=== PATIENT | female | born 1975 | race Caucasian/White ===

== ENCOUNTER 2023-07-26 08:52 | Emergency (ER) | payer OTHER ==
[~2023-07-26] VITALS: Ht 160 cm; Wt 54.4 kg
[2023-07-26] MEDS ORDERED: MORPHINE SULFATE 4 MG/1 ML DISP.SYRIN ONE (09:08)
[2023-07-26] MEDS ORDERED: ONDANSETRON 4 MG/2 ML VIAL ONE (09:08)
[2023-07-26 09:12] LABS: BASOPHILS # (AUTO) 0.1 K/UL (0.0-0.2); BASOPHILS % (AUTO) 0.6 % (0.0-2.0); EOSINOPHILS % (AUTO) 0.4 % (0.0-7.0); HEMATOCRIT 41.3 % (31.2-41.9); HEMOGLOBIN 14.2 g/dL (10.9-14.3); LYMPHOCYTES # (AUTO) 1.7 K/uL (0.8-4.8); LYMPHOCYTES % (AUTO) 16.4 % (20.5-51.5); MEAN CORPUSCULAR HEMOGLOBIN 31.8 uug (24.7-32.8); MEAN CORPUSCULAR HGB CONC 34 g/dL (32.3-35.6); MONOCYTES # (AUTO) 0.5 K/uL (0.1-1.30); MONOCYTES % (AUTO) 4.5 % (0.0-11.0); NEUTROPHILS # (AUTO) 8.2 K/uL (1.8-8.9); NEUTROPHILS % (AUTO) 78.1 % (38.5-71.5); PLATELET COUNT (AUTO) 335 K/uL (179-408); RED BLOOD CELL COUNT(AUTO) 4.45 MIL/uL (3.63-4.92); RED CELL DISTRIBUTION WIDTH 13.3 % (12.3-17.7); WHITE BLOOD COUNT (AUTO) 10.4 K/uL (3.8-11.8)
[2023-07-26] MEDS: IV NORMAL SALINE 1000 ML BAG IV ONE (09:13)
[2023-07-26] MEDS: MORPHINE SULFATE 2 MG/1 ML DISP.SYRIN IV ONE (09:13)
[2023-07-26] MEDS: ONDANSETRON 4 MG/2 ML VIAL IV ONE (09:14)
[2023-07-26 09:18] LABS: DIFFERENTIAL COMMENT 1
[2023-07-26 09:21] LABS: CALCIUM 9.4 mg/dL (8.5-10.1); CARBON DIOXIDE 27 mmol/L (21-32); CHLORIDE 100 mmol/L (98-107); CREATININE 0.7 mg/dL (0.6-1.3); GLUCOSE 128 mg/dL (74-106); POTASSIUM 3.7 mmol/L (3.5-5.1); SODIUM SERUM 134 mmol/L (136-145); UREA NITROGEN, BLOOD 14 mg/dL (7-18)
[2023-07-26 09:27] LABS: ALANINE AMINOTRANSFERASE 27 U/L (14-59); ALBUMIN 3.9 g/dL (3.4-5.0); ALKALINE PHOSPHATASE 90 U/L (50-136); ASPARTATE AMINOTRANSFERASE 15 U/L (15-37); BILIRUBIN,DIRECT 0.1 mg/dL (0.0-0.2); BILIRUBIN,TOTAL 0.3 mg/dL (0.2-1.0); LIPASE 44 U/L (16-77); TOTAL PROTEIN, SERUM 7.5 g/dL (6.4-8.2)
[2023-07-26 09:32] LABS: PREGNANCY TEST SERUM QUAN < 1 miul/L (0-6)
[2023-07-26] MEDS ORDERED: KETOROLAC TROMETHAMINE 30 MG INJ ONE (09:39)
[2023-07-26] MEDS: KETOROLAC TROMETHAMINE 30 MG INJ IVP ONE (09:41)
[2023-07-26] MEDS ORDERED: ONDA4TAB11 PO (11:17)
[2023-07-26] MEDS ORDERED: DICY20TA11 PO (11:17)
[2023-07-26] MEDS ORDERED: KETOROLAC TROMETHAMINE 15 MG INJ ONE (11:20)
[2023-07-26] MEDS: KETOROLAC TROMETHAMINE 15 MG INJ IVP ONE (11:23)
[2023-07-26 11:36] VITALS: BP 131/86; O2SAT 95
== END 2023-07-26 11:36 | disposition home or self-care (01) ==
LOC: ER 08:52
DX: K56.7 Ileus, unspecified (principal); R10.9 Unspecified abdominal pain; R10.2 Pelvic and perineal pain; Z79.899 Other long term (current) drug therapy; Z91.040 Latex allergy status
CPT/HCPCS: 36415; 83690; 85025; A4606; A4663; J1885; J2270; J2405; J7040